=== PATIENT | male | born 1980 | race Two or more races ===

== ENCOUNTER 2018-11-04 18:52 | Emergency (ER) | payer SELFPAY ==
[~2018-11-04] VITALS: Ht 172.7 cm; Wt 77.1 kg
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
[2018-11-04] MEDS ORDERED: levETIRAcetam 1,000mg/NS100ml 100 ML IVPB ONE ×2 (19:00→19:35)
--- NOTE | 2018-11-04 19:08 | NUR ---
HAND-OFF: Report given to JESSIE BENSON. SEIZURE PRECAUTION APPLIED, PATIENT PLACED ON THE MONITOR.
[2018-11-04 19:09] VITALS: BP 168/102
--- NOTE | 2018-11-04 19:09 | NUR ---
ED Nurse Note: Pt received from KELLEY Mullins. Pt AAOx3, vss, confused and in stable condition. Friend at bed side. Pt awake in bed calm and talking. Pt on Cardiac moitor with no skin issues noted.
--- NOTE | 2018-11-04 19:17 | NUR ---
ED Nurse Note: Pt blood work set to lab and pt taken to CT.
[2018-11-04] MEDS ORDERED: levETIRAcetam 500mg vial IV ONE (19:31)
[2018-11-04 20:02] LABS: EOSINOPHILS % (AUTO) 3.5 % (0.0-3.0); HEMATOCRIT 44.5 % (42.0-52.0); LYMPHOCYTES % (AUTO) 30.4 % (20.0-45.0); MEAN CORPUSCULAR VOLUME 88 FL (80-99); MONOCYTES % (AUTO) 7.2 % (1.0-10.0); NEUTROPHILS % (AUTO) 57.9 % (45.0-75.0); PLATELET COUNT 211 K/UL (150-450); RED BLOOD COUNT 5.05 M/UL (4.70-6.10); RED CELL DISTRIBUTION WIDTH 10.5 % (11.6-14.8)
[2018-11-04 20:14] LABS: ANION GAP 15 mmol/L (5-15); BLOOD UREA NITROGEN 13 mg/dL (7-18); CALCIUM 8.8 MG/DL (8.5-10.1); CARBON DIOXIDE 20 MMOL/L (21-32); CHLORIDE 105 MMOL/L (98-107); CREATININE 1.2 MG/DL (0.55-1.30); POTASSIUM 4.1 MMOL/L (3.5-5.1); SODIUM 140 MMOL/L (136-145)
[2018-11-04 20:24] LABS: ALANINE AMINOTRANSFERASE 17 U/L (12-78); ALBUMIN 3.9 G/DL (3.4-5.0); ALKALINE PHOSPHATASE 69 U/L (46-116); ASPARTATE AMINO TRANSFERASE 24 U/L (15-37); BILIRUBIN,TOTAL 0.4 MG/DL (0.2-1.0); CKMB 1.2 NG/ML (0.0-3.6); CREATINE KINASE 164 U/L (26-308)
[2018-11-04 20:57] LABS: APPEARANCE,URINE CLEAR; BILIRUBIN, URINE NEGATIVE (NEGATIVE); COLOR,URINE PALE YELLOW; GLUCOSE, URINE (UA) NEGATIVE (NEGATIVE); KETONES,URINE 1+ (NEGATIVE); LEUKOCYTE ESTERASE ,URINE NEGATIVE (NEGATIVE); NITRITE,URINE NEGATIVE (NEGATIVE); PH,URINE 5 (4.5-8.0); PROTEIN,URINE 2+ (NEGATIVE); UROBILINOGEN,URINE NORMAL MG/DL (0.0-1.0)
--- NOTE | 2018-11-04 20:57 | NUR ---
Lapse of consciousness form faxed to V.
--- NOTE | 2018-11-04 21:54 | NUR ---
ED Nurse Note: Pt resting with friend, Tessie, at bedside.
[2018-11-04 22:00] VITALS: BP 122/75
--- NOTE | 2018-11-04 22:00 | NUR ---
ED Nurse Note: Pt cleared by ERMDr for discharge. DC instructions/prescription was given and explained to pt and verbalized understanding of teachings. All medical deviecs such as ID band and Iv line removed. Pt is AAO x4, ambulatory and left with all personal belongings. Accompanied by family member.
[2018-11-04] MEDS ORDERED: KEPPRA500 M4 ORAL (22:01)
--- NOTE | 2018-11-05 10:27 | Diagnostic Imaging Report ---
Indication: Headache Technique: Contiguous 5 mm thick transaxial imaging of the head obtained in a Siemens Sensation [address] scanner. Soft tissue and bone windows generated. Automatic Exposure Control was utilized. Total Dose length Product (DLP): [address] Dose Index Volume (CTDIvol): 70.70 mGy Comparison: 10/15/2009 Findings: The size and configuration of the cortical sulci, basal cisterns, and ventricles are within normal limits for age. There is no mass effect, midline shift, or edema identified. There is no evidence of acute hemorrhage or abnormal intra-axial or extra-axial fluid collections. The bones and soft tissues are unremarkable. Impression: No mass effect, edema or acute bleed. [facility] has communicated the preliminary results to the Emergency Department. Their findings are largely concordant with this report. The CT scanner at [facility] is accredited by the [employer] and the scans are performed using dose optimization techniques as appropriate to a performed exam including Automatic Exposure control.
--- NOTE | 2018-11-07 15:22 | Cardiology Report ---
APPROVED REPORT EKG Measurement Heart [id number] Sinus tachycardia Otherwise normal ECG
== END 2018-11-04 22:00 | disposition home or self-care (01) ==
LOC: EDBD 18:52 → EMR 19:05
DX: R56.9 Unspecified convulsions (principal)
CPT/HCPCS: 36415; 70450; 80053; 80307; 81003; 82550; 82553; 84484; 85025; 93005; 96361; 96365; 99284; G0480; J1953; 80329